=== PATIENT | male | born 1975 | race Asian ===

== ENCOUNTER 2017-07-01 22:54 | Emergency (ER) | payer OTHER ==
[~2017-07-01] VITALS: Ht 182.9 cm; Wt 81.6 kg
[2017-07-02 00:47] LABS: PLATELET COUNT 208 K/uL (142-355)
[2017-07-02 00:53] LABS: POTASSIUM 3.7 mmol/L (3.6-5.2)
== END 2017-07-02 01:32 | disposition home or self-care (01) ==
LOC: ED 22:54
DX: J32.0 Chronic maxillary sinusitis (principal); K05.6 Periodontal disease, unspecified; J02.0 Streptococcal pharyngitis
CPT/HCPCS: 36415; 80053; 81000; 85027; 87804; 87880; 99283

== ENCOUNTER 2018-02-07 17:37 | Emergency (ER) | payer OTHER ==
[~2018-02-07] VITALS: Ht 185.4 cm; Wt 80.7 kg
[2018-02-07 18:44] LABS: PLATELET COUNT 185 K/uL (142-355)
[2018-02-07 18:49] LABS: POTASSIUM 3.9 mmol/L (3.6-5.2)
[2018-02-07 20:05] VITALS: BP 145/102; TEMP 98.1
== END 2018-02-07 20:06 | disposition home or self-care (01) ==
LOC: ED 17:37
DX: S16.1XXA Strain of muscle, fascia and tendon at neck level, initial encounter (principal); S39.012A Strain of muscle, fascia and tendon of lower back, initial encounter; W17.4XXA Fall from dock, initial encounter; Y92.62 Dock or shipyard as the place of occurrence of the external cause
CPT/HCPCS: 36415; 80053; 80307; 81000; 85027; 99283

== ENCOUNTER 2019-07-09 08:47 | Emergency (ER) | payer OTHER ==
[~2019-07-09] VITALS: Ht 185.4 cm; Wt 79.4 kg
[2019-07-09 08:57] VITALS: TEMP 98.9
[2019-07-09 09:52] LABS: PLATELET COUNT 180 K/uL (142-355)
[2019-07-09 09:56] LABS: POTASSIUM 4.5 mmol/L (3.6-5.2)
[2019-07-09 10:07] LABS: PARTIAL THROMBOPLASTIN TIME 22.4 SECONDS (24.5-33.6)
[2019-07-09 10:30] VITALS: BP 123/85
== END 2019-07-09 11:08 | disposition home or self-care (01) ==
LOC: ED 08:47
PROVIDERS: Hospitalist
DX: L03.116 Cellulitis of left lower limb (principal); L03.032 Cellulitis of left toe; E11.65 Type 2 diabetes mellitus with hyperglycemia
CPT/HCPCS: 36415; 80053; 83605; 85027; 85610; 85730; 87040; 96365; 96375; 99284; J1815; J1885; J2405; J3370

== ENCOUNTER 2019-10-05 17:35 | Emergency (ER) | payer OTHER ==
[~2019-10-05] VITALS: Ht 185.4 cm; Wt 79.4 kg
[2019-10-05 18:56] LABS: PLATELET COUNT 208 K/uL (142-355)
[2019-10-05 18:57] LABS: POTASSIUM 4.1 mmol/L (3.6-5.2); SODIUM 138 mmol/L (136-145)
[2019-10-05 21:42] VITALS: BP 186/98; TEMP 97.3
== END 2019-10-05 21:43 | disposition home or self-care (01) ==
LOC: ED 17:35
PROVIDERS: Hospitalist
DX: K31.84 Gastroparesis (principal); R11.2 Nausea with vomiting, unspecified; E11.43 Type 2 diabetes mellitus with diabetic autonomic (poly)neuropathy; E11.65 Type 2 diabetes mellitus with hyperglycemia
CPT/HCPCS: 80053; 80307; 80320; 81002; 82150; 83690; 84484; 85027; 93005; 96360; 96375; 99284; J0360; J1815; J2405; J2765

== ENCOUNTER 2019-10-06 19:48 | Emergency (ER) | payer OTHER ==
[~2019-10-06] VITALS: Ht 185.4 cm; Wt 79.4 kg
[2019-10-06 21:22] LABS: PLATELET COUNT 225 K/uL (142-355)
[2019-10-06 21:27] LABS: POTASSIUM 3.8 mmol/L (3.6-5.2)
[2019-10-06 23:55] VITALS: BP 147/95; TEMP 98.3
== END 2019-10-06 23:55 | disposition home or self-care (01) ==
LOC: ED 19:48
PROVIDERS: Family Medicine
DX: J02.9 Acute pharyngitis, unspecified (principal); E11.65 Type 2 diabetes mellitus with hyperglycemia; Z79.84 Long term (current) use of oral hypoglycemic drugs; R11.2 Nausea with vomiting, unspecified
CPT/HCPCS: 80053; 82962; 85027; 87502; 87651; 96360; 96365; 96375; 99283; 99284; J0696; J1815

== ENCOUNTER 2020-12-30 15:27 | Emergency (ER) | payer OTHER ==
[~2020-12-30] VITALS: Ht 185.4 cm; Wt 90.7 kg
[2020-12-30 16:29] VITALS: BP 125/86; TEMP 95.3
== END 2020-12-30 16:32 | disposition home or self-care (01) ==
LOC: ED 15:27
DX: E11.649 Type 2 diabetes mellitus with hypoglycemia without coma (principal); Z79.4 Long term (current) use of insulin
CPT/HCPCS: 82948; 99283

== ENCOUNTER 2021-01-28 06:51 | Emergency (ER) | payer OTHER ==
[~2021-01-28] VITALS: Ht 185.4 cm; Wt 79.4 kg
[2021-01-28 07:10] VITALS: TEMP 98.1
[2021-01-28 07:43] LABS: PLATELET COUNT 239 K/uL (142-355)
[2021-01-28 11:47] VITALS: BP 146/91
== END 2021-01-28 11:47 | disposition home or self-care (01) ==
LOC: ED 06:51
PROVIDERS: Emergency Medicine Emergency Medical Services
DX: R11.2 Nausea with vomiting, unspecified (principal); K31.84 Gastroparesis; E86.0 Dehydration
CPT/HCPCS: 80053; 81002; 83690; 85027; 96360; 96361; 96375; 96376; 99284; J2405; J3490